=== PATIENT | male | born 1985 | race Caucasian/White ===

== ENCOUNTER 2020-04-24 15:11 | Emergency (ER) | payer OTHER ==
[2020-04-24] MEDS ORDERED: ACETAMINOPHEN 500 MG TABLET (FP) PO ONE (15:20)
--- NOTE | 2020-04-24 15:20 | PDOC ---
Rapid Medical Evaluation Time Seen by Provider: 04/24/20 15:18 Medical Evaluation: Allergies Allergy/AdvReac Type Severity Reaction Status Date / Time No Known Allergies Allergy Verified 03/24/15 10:14 04/24/20 15:18 I have performed a brief in-person examination on this patient. CC: laceration to right hand after mirror broke PE: 2cm curved laceration over right 5th MCP. Hemastasis acheived. Orders: boostrix, xray Patient will proceed to ED for further evaluation. Discharge Disposition - Diagnosis Laceration - Referrals - Patient Instructions - Post Discharge Activity
[2020-04-24 15:33] VITALS: BP 124/87; PULSE 60; TEMP 98.1; BMI 28.8
[2020-04-24] MEDS ORDERED: ACETAMINOPHEN 325 MG TABLET (FP) ONE (16:00)
[2020-04-24] MEDS ORDERED: DIPHTH,PERTUSS(ACELL),TET 0.5 ML DISP.SYRIN IM ONE (16:00)
[2020-04-24] MEDS: DIPHTH,PERTUSS(ACELL),TET 0.5 ML DISP.SYRIN IM ONE ×2 (16:00→16:02)
--- NOTE | 2020-04-24 16:11 | PDOC ---
History of Present Illness - General Chief Complaint: Injury Stated Complaint: R/ARM INJURY Time Seen by Provider: 04/24/20 15:18 History Source: Patient Exam Limitations: Clinical Condition - History of Present Illness Initial Comments: 04/24/20 16:08 Patient with no significant past medical history present with complaint of laceration to right hand and pain to right great toe status post moving a dresser which had a mirror and the dresser falling and he tried to grab the dresser falling on his right toe and when he attempted to raise the dresser hit his right hand in the mirror cutting his right hand. Patient reported last tetanus vaccine 5 years ago. Denies numbness tingling sensation to right hand. Denies any other symptoms Occurred: reports: just prior to arrival Past History - Medical History Allergies/Adverse Reactions: Allergies Allergy/AdvReac Type Severity Reaction Status Date / Time naproxen Allergy Intermediate Hives Verified 04/24/20 15:22 Home Medications: Ambulatory Orders Amox-Tr/K Cl [Augmentin - 875Mg Tablet] 1 tab PO BID #14 tablet 04/24/20 Oxycodone HCl/Acetaminophen [Percocet 5-325 mg Tablet] 1 tab PO Q6H PRN 3 Days #6 tablet MDD 2 04/24/20 Anemia: No Asthma: Yes (NO RECENT ATTACK) Cancer: No Cardiac Disorders: No CVA: No COPD: No CHF: No Dementia: No Diabetes: No GI Disorders: Yes (ILEITIS,COLITIS 2013) Disorders: No HTN: No Hypercholesterolemia: No Liver Disease: No Psychiatric Problems: Yes (DEPRESSION) Seizures: No Thyroid Disease: No - Surgical History Abdominal Surgery: No Appendectomy: No Cardiac Surgery: No Cholecystectomy: No Lung Surgery: No Neurologic Surgery: No Orthopedic Surgery: No - Immunization History Immunization Up to Date: Yes - Psycho-Social/Smoking History Smoking History: Never smoked Have you smoked in the past 12 months: No Number of Cigarettes Smoked Daily: 0 - Substance Abuse Hx (Audit-C & DAST Scrn) How often the patient has a drink containing alcohol: Never Score: In Men: 4 or > Positive; In Women: 3 or > Positive: 0 Screen Result (Pos requires Nsg. Audit-10AR): Negative In the last yr the pt used illegal drug/Rx for NonMed reason: No Score: Yes response is considered Positive: 0 Screen Result (Positive result requires Nsg. DAST-10): Negative Review of Systems - Review of Systems Able to Perform ROS?: Yes Is the patient limited Spanish proficient: No Constitutional: No: Chills, Fever, Malaise HEENTM: No: Symptoms Reported Respiratory: No: Symptoms reported Cardiac (ROS): No: Symptoms Reported Musculoskeletal: Yes: Symptoms Reported, See HPI, Joint Pain (right great toe pain), Muscle Pain (right hand pain) Integumentary: Yes: Symptoms Reported, See HPI, Other (laceration to back of right hand) Neurological: No: Numbness, Paresthesia, Tingling All Other Systems: Reviewed and Negative *Physical Exam - Vital Signs Last Vital Signs Temp Pulse Resp BP Pulse Ox 98.1 F 60 18 124/87 98 04/24/20 15:27 04/24/20 15:27 04/24/20 15:27 04/24/20 15:27 04/24/20 15:27 - Physical Exam 04/24/20 16:35 GENERAL: Well developed, well nourished. Awake and alert. No acute distress. PULMONARY: No evidence of respiratory distress. MUSCULOSKELETAL : Moderate tenderness over lateral aspect of dorsal aspect of right hand over 2.5 cm laceration with a flap to dorsal aspect of right hand over 4th-5th metacarpals with minimal bleeding. Moderate tenderness over right great toe without any open wounds. Full range of motion of right hand. Normal strength to right hand. No bony deformities SKIN: Warm and dry. Normal capillary refill. 2.5 laceration to dorsal aspect of right hand over 4th-5th metacarpals with minimal bleeding NEUROLOGICAL: Alert, awake, appropriate. No motor deficits in the lower extremities. Gait is normal without ataxia. PSYCHIATRIC: Cooperative. Good eye contact. Appropriate mood and affect. General Appearance: Yes: Nourished, Appropriately Dressed. No: Apparent Distress Procedures - Laceration/Wound Repair Right Posterior Lateral Dorsal Hand Wound Length: 2.6 to 5.0 cm Wound Explored: clean Wound's Depth, Shape: superficial, flap Irrigated w/ Saline: Yes Betadine Prep: Yes Anesthesia: 1% Lidocaine Amount of Anesthetic (ccs): 2 Wound Repaired With: Sutures Suture Size/Type: 4:0, nylon Number of Sutures: 5 Layer Closure: No Sterile Dressing Applied: Yes Splint Applied: No Sling Applied: No Progress: 04/24/20 18:40 Wound to back of right hand cleaned with Betadine and copiously irrigated with normal saline. Wound infiltrated with 2 cc 1% lidocaine. Wound closed with 5 interrupted 4-0 nylon sutures with close approximation after good anesthetic achieved. Patient tolerated procedure well. Wound covered with adhesive bandage and right hand wrapped with Kerlix stretch gauze. ED Treatment Course - Medications Given in the ED: ED Medications Discontinued Medications Generic Name Dose Route Start Last Admin Trade Name Joana PRN Reason Stop Dose Admin Acetaminophen 975 mg 04/24/20 15:20 04/24/20 16:02 Tylenol - PO 04/24/20 15:21 975 mg ONCE ONE Administration Diphtheria/Tetanus/Acell Pertussis 0.5 ml 04/24/20 15:22 04/24/20 16:02 Boostrix - IM 04/24/20 15:23 Not Given .ONCE ONE Medical Decision Making - Medical Decision Making 04/24/20 16:09 Patient with no significant past medical history present with complaint of laceration to right hand and pain to right great toe status post moving a dresser which had a mirror and the dresser falling and he tried to grab the dresser falling on his right toe and when he attempted to raise the dresser hit his right hand in the mirror cutting his right hand. Patient reported last tetanus vaccine 5 years ago. Denies numbness tingling sensation to right hand. Denies any other symptoms Exam significant for moderate tenderness to right great toe with no visible deformity. 2.5 cm linear laceration to dorsal aspect of right hand with minimal bleeding. Full range of motion of right hand. Normal sensory to right hand 04/24/20 18:37 Wound to back of right hand cleaned with Betadine and copiously irrigated with normal saline. Wound infiltrated with 2 cc 1% lidocaine. Wound closed with 5 interrupted 4-0 nylon sutures with close approximation after good anesthetic achieved. Patient tolerated procedure well. Wound covered with adhesive bandage and right hand wrapped with Kerlix stretch gauze. X-ray of right hand shows no foreign body in wound and shows no fracture to right hand or right great toe. Patient stable for discharge Augmentin antibiotics for infection prophylaxis and Tylenol p.o. for pain with advised to do cold compresses today as needed for swelling and advised on continues wound care with follow-up in 1 week for suture removal Discharge - Discharge Information Problems reviewed: Yes Clinical Impression/Diagnosis: Contusion of right great toe without damage to nail, initial encounter Laceration of right hand without complication, excluding fingers Qualifiers: Encounter type: initial encounter Qualified Code(s): S61.411A - Laceration without foreign body of right hand, initial encounter Condition: Stable Disposition: HOME - Admission No - Additional Discharge Information Prescriptions: Amox-Tr/K Cl [Augmentin - 875Mg Tablet] 1 tab PO BID #14 tablet Oxycodone HCl/Acetaminophen [Percocet 5-325 mg Tablet] 1 tab PO Q6H PRN 3 Days #6 tablet MDD 2 PRN Reason: severe pain - Follow up/Referral Referrals: Jame Henley MD [Primary Care Provider] - - Patient Discharge Instructions Patient Printed Discharge Instructions: DI for Laceration Repair -- Simple Additional Instructions: X-ray of your hand shows no foreign body and x-ray of your toes shows no fracture. Keep wound clean and dry for the next 24 hours. Apply bacitracin to wound twice a day. Take prescribed antibiotics and finish it. Take prescribed medication as needed for pain and he can alternate with Tylenol as needed for pain. Follow-up in 1 week for suture removal - Post Discharge Activity
== END 2020-04-24 17:42 | disposition home or self-care (01) ==
LOC: JERFT 15:11
PROC: 0HQFXZZ Repair Right Hand Skin, External Approach (ICD-10-PCS; principal; 2020-04-24)
DX: S61.411A Laceration without foreign body of right hand, initial encounter (principal); S90.111A Contusion of right great toe without damage to nail, initial encounter
CPT/HCPCS: 73130-TC-RT-FY; 73660-TC-FY; 90715; 99284-25

== ENCOUNTER 2020-12-14 14:36 | Emergency (ER) | payer OTHER ==
[2020-12-14 14:49] VITALS: BP 122/79; PULSE 85; TEMP 98; BMI 28.8
[2020-12-14] MEDS ORDERED: BACITRACIN 15 GM TUBE TOPICAL OINTMENT TP ONE (15:32)
[2020-12-14] MEDS ORDERED: BACITRACIN 15 GM TUBE TOPICAL OINTMENT ONE (15:44)
== END 2020-12-14 18:39 | disposition home or self-care (01) ==
LOC: JERFT 14:36
DX: S91.301A Unspecified open wound, right foot, initial encounter (principal); S90.422A Blister (nonthermal), left great toe, initial encounter; M25.531 Pain in right wrist
CPT/HCPCS: 73110-TC-RT-FY; 73130-TC-RT-FY; 99283-25

== ENCOUNTER 2021-06-03 01:32 | Emergency (ER) | payer OTHER ==
[2021-06-03 01:57] VITALS: BP 142/97; PULSE 66; TEMP 97.3; BMI 29.5
[2021-06-03] MEDS ORDERED: ACETAMINOPHEN 500 MG TABLET (FP) PO ONE (02:33)
[2021-06-03] MEDS ORDERED: AMOXICILLIN 500 MG CAPSULE (FP) PO ONE (02:36)
[2021-06-03] MEDS ORDERED: ACETAMINOPHEN 325 MG TABLET (FP) ONE (02:42)
[2021-06-03] MEDS ORDERED: AMOXICILLIN 500 MG CAPSULE (FP) ONE (02:42)
== END 2021-06-03 02:51 | disposition home or self-care (01) ==
LOC: JER 01:32
DX: H66.90 Otitis media, unspecified, unspecified ear (principal)
CPT/HCPCS: 99283-25

== ENCOUNTER 2021-07-17 21:40 | Emergency (ER) | payer OTHER ==
[2021-07-17 22:22] VITALS: BP 124/86; PULSE 89; TEMP 100.5; BMI 29.5
[2021-07-17] MEDS ORDERED: ACETAMINOPHEN 500 MG TABLET (FP) PO ONE (23:49)
[2021-07-18] MEDS ORDERED: ALBUTEROL SO4 HFA INHALER IH ONE ×2 (00:06→00:17)
[2021-07-18] MEDS ORDERED: ACETAMINOPHEN 325 MG TABLET (FP) ONE (00:17)
== END 2021-07-18 02:49 | disposition home or self-care (01) ==
LOC: JER 21:40
PROC: 3E0F7GC Introduction of Other Therapeutic Substance into Respiratory Tract, Via Natural or Artificial Opening (ICD-10-PCS; principal; 2021-07-17)
DX: J06.9 Acute upper respiratory infection, unspecified (principal); R05.9 Cough, unspecified; Z11.52 Encounter for screening for COVID-19
CPT/HCPCS: 87804; 99283-25; C9803; U0003; U0005

== ENCOUNTER 2023-10-29 15:02 | Emergency (ER) | payer OTHER ==
[2023-10-29 15:14] VITALS: BP 125/63; PULSE 98; RESP 16; TEMP 98; BMI 28.0
== END 2023-10-29 17:07 | disposition home or self-care (01) ==
LOC: JERFT 15:02
DX: S60.221A Contusion of right hand, initial encounter (principal); M79.641 Pain in right hand; V29.91XA Electric (assisted) bicycle rider (driver) (passenger) injured in unspecified traffic accident, initial encounter; Y93.55 Activity, bike riding; Y92.410 Unspecified street and highway as the place of occurrence of the external cause
CPT/HCPCS: 73130-TC-RT-FY; 99283-25